=== PATIENT | female | born 1950 ===

== ENCOUNTER 2021-01-09 08:36 | Outpatient (CLI) | payer MEDICARE, MEDICAID, SELFPAY ==
--- NOTE | 2021-01-09 08:55 | USCV_ITS ---
Nery Sona Age: 70 Gender: F : 1950 Exam Date: 01/09/2021 09:01 Ordering Phys: Contreras Jacob MD Technologist: Crissy Blas Exam Location: [facility] – [place] Indication: ATHEROMATOUS PLAQUE BILATERAL Risk Factors: Previous Vascular Surgery: Right Brachial BP: / Left Brachial BP: / Right Left Velocity (cm/s) Spectral Plaque Velocity (cm/s) Spectral Plaque Syst/Diast Broadening Syst/Diast Broadening 82.70/ 17.60 Prox CCA 57.90 / 17.50 93.70/ 26.50 Mid CCA 50.80 / 9.50 57.30/ 22.10 Distal CCA 56.30 / 11.90 48.00/ 20.40 Prox ICA 36.50 / 11.90 61.90/ 22.20 Mid ICA 61.90 / 22.20 47.60/ 18.30 Distal ICA 79.40 / 27.00 70.30 ECA 62.70 0.66 ICA/CCA 1.56 Antegrade Vertebral Antegrade 39.10/ 11.70 cm/s 50.00/ 17.50 cm/s Tri Subclavian Tri 76.40 80.20 FINDINGS Comparison:. 09/22/18. No significant elevation of systolic or diastolic velocities. Waveforms are normal. Minimal bilateral, intimal thickening with no elevation of velocity. CONCLUSIONS Bilateral ICA stenosis less than 50%. Mild carotid atherosclerosis. Dr. Selin Turner DO (Electronically Signed) Final Date: 09 January 2021 10:05 S
== END 2021-01-09 08:37 | disposition home or self-care (01) ==
LOC: RAD 08:42
PROVIDERS: PCP Family Medicine; Visit Provider Family Medicine
DX: I65.23 Occlusion and stenosis of bilateral carotid arteries (principal)
CPT/HCPCS: 93880

== ENCOUNTER 2022-03-27 08:45 | Outpatient (CLI) | payer MEDICARE, MEDICAID, SELFPAY ==
--- NOTE | 2022-03-27 08:49 | USCV_ITS ---
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 Mild atheromatous plaque right carotid bulb/ICA. Left ICA stenosis <50%. Mild atheromatous plaque left carotid bulb/ICA. Normal antegrade Doppler flow noted in the right vertebral artery. Normal antegrade Doppler flow noted in the left vertebral artery. Felipe Das MD (Electronically Signed) Final Date: 27 March 2022 16:57 S
== END 2022-03-27 08:46 | disposition home or self-care (01) ==
LOC: RAD 08:47
PROVIDERS: PCP Family Medicine; Visit Provider Family Medicine
DX: I65.23 Occlusion and stenosis of bilateral carotid arteries (principal)
CPT/HCPCS: 93880